=== PATIENT | male | born 1940 | race Caucasian/White ===

== ENCOUNTER → 2017-05-31 | Day surgery (SDC) | payer MEDICARE, OTHER ==
[~2017-05-31] VITALS: Ht 182.9 cm; Wt 100.0 kg
[~2017-05-31] MED LIST: ASPI-516 CHEW; BACITRACIN TOP OINT 15 GM TUBE ONE; BUPIVACAINE HCL PF 0.25% 30 ML VIAL ONE; BUPIVACAINE/EPINEPHRINE 0.25% 50 ML VIAL ONE; CHLORHEXIDINE GLUCONATE 2 % 1 PACK (2 CLOTHS) TOPICAL PRN; DEXAMETHASONE SOD PHOS 4 MG/ML VIAL IV ONE; IBUP1TAB7 PO; LACTATED RINGER'S 1000 ML IV PRN; LIDOCAINE 1%/EPINEPHrine 1:100,000 SOLN 30 ML VIAL ONE; LIDOCAINE HCL 1% PF 5 ML SYRINGE OTHER ONE; METOPROLOL TARTRATE 25 MG TAB PO PRN; MIDAZOLAM HCL 2 MG/2 ML VIAL ONE; MORPHINE SULFATE 2 MG/ML INJ ONE; NEOMYCIN/POLYMYXIN 1 ML G.U. IRRIGANT ONE; ONDANSETRON HCL 4 MG/2 ML VIAL IV PUSH ONE; POVIDONE IODINE 5% (ANTISEPSIS KIT) 4 APPLICATIONS EACH NARE PRN; PREV15CA20 PO; PROPOFOL 200 MG/20 ML AMP IV ONE; SODIUM CHLORID 0.9% 500 ML IV PRN; TAMS5CAP PO; ceFAZolin 2 GM PREMIX 50 ML IV SCH; ceFAZolin 2 GM PREMIX 50 ML ONE; ePHEDrine/NS 25 MG/5 ML SYRINGE IV ONE
[2017-05-31 10:00] VITALS: PULSE 85
[2017-05-31 11:30] VITALS: BP 127/71; PULSE 71; RESP 16; TEMP 97.4; O2SAT 99
--- NOTE | 2017-05-31 15:21 | EKG ---
Date Performed: 05/31/2017 Time Performed: 08:22:47 PTAGE: 76 years EKG: Sinus rhythm MINIMAL ST DEPRESSION BORDERLINE ECG NO PREVIOUS TRACING DOCTOR: Daniele Cassidy Interpretating Date/Time 05/31/2017 15:19:48
--- NOTE | 2017-05-31 16:40 | PD.OP ---
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 Surgeon: Alec Cruz Turntable Engineer(s): . 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 Risk benefits and alternative treatments were discussed with patient. All questions answered. Patient expressed understanding. Patient elected to assume the risks of wide local excision of above 2 lesions. Informed consent obtained. The surgical sites were marked in the preoperative holding bay. Antibiotics were given on-call to the operating room. The patient was taken to the operating room. All pressure points were padded. After the smooth induction of general anesthesia, a surgical timeout was performed, and the lesions and margins were marked. Following this, the surgical sites were instilled with quarter percent Marcaine with epinephrine. The surgical sites were prepped and draped in usual sterile fashion. Attention was first turned to the left anterior shoulder lesion. This was excised with 5 mm margin circumferentially. After undermining of several centimeters in both directions, the central aspect of the wound was closed with 3-0 Monocryl interrupted. Following this standing cone deformities were excised. The remainder of the incision was closed with deep dermal 3-0 Monocryl's, followed by running 4-0 Monocryl subcuticular. The wound was cleaned, dried, and dressed with Steri-Strips dry gauze and Tegaderm. Attention was now turned to the left ear lesion. This was excised leaving adequate perichondrium over the underlying cartilage. Superolaterally, under the central portion of the lesion , some cartilage was taken (roughly 4 mm) because this was adherent to the overlying skin following the biopsy. This was not felt to result in significant cosmetic sequelae as this area would likely be excised during the reconstruction. Furthermore because it was adherent, it was thought to be more oncologically prudent to include it with the specimen. The specimen was marked for orientation and sent for permanent pathology. Following this hemostasis was ensured. The wound was dressed with copious bacitracin Xeroform dry gauze fluffs Gemma wrap and a craniotomy stockinette. All needle sponge and instrument counts were correct 2. The patient was awoken from anesthesia and arrived stable and doing well to the PACU. Alec Cruz MD May 31, 2017 16:40
== END | disposition home or self-care (01) ==
LOC: PHSDC 07:50
PROVIDERS: ATTEND Student in an Organized Health Care Education/Training Program
DX: D03.62 Melanoma in situ of left upper limb, including shoulder (principal); D03.22 Melanoma in situ of left ear and external auricular canal; Z01.810 Encounter for preprocedural cardiovascular examination
CPT/HCPCS: 00300; 11603; 11644; 13121; 88305; 93005; J0690; J1100; J2250; J2270; J2405; J3010; J7120

== ENCOUNTER → 2017-06-12 | Day surgery (SDC) | payer MEDICARE, OTHER ==
[~2017-06-12] VITALS: Ht 182.9 cm; Wt 99.5 kg
[~2017-06-12] MED LIST changes: +ACETAMINOPHEN 1000 MG/100 ML 100 ML IV ONE; +ACETAMINOPHEN/HYDROcodone 325 MG/5 MG TAB PO PRN; +ARTIFICIAL TEARS OPTH OINT 3.5 APPLIC/3.5 GM TUBO ONE; -BUPIVACAINE HCL PF 0.25% 30 ML VIAL ONE; +DO NOT ADM ANY ANTICOAGULANT DRUGS PRN; +GLYCOPYRROLATE 1 MG/5 ML SYRINGE IV PUSH ONE; +LACTATED RINGER'S 1000 ML INJ 1,000 ML IV ONE; -LIDOCAINE 1%/EPINEPHrine 1:100,000 SOLN 30 ML VIAL ONE; -MORPHINE SULFATE 2 MG/ML INJ ONE; -NEOMYCIN/POLYMYXIN 1 ML G.U. IRRIGANT ONE; +NEOSTIGMINE 5 MG/5 ML SYRINGE IV PUSH ONE; -ONDANSETRON HCL 4 MG/2 ML VIAL IV PUSH ONE; +ROCURONIUM INJ 50 MG/5 ML SYRINGE IV PUSH ONE; +[UNRECOGNIZED DRUG - OTHER] TOPICAL ONE; +ceFAZolin 1,000 MG/NS 100 ML IV SCH; -ceFAZolin 2 GM PREMIX 50 ML IV SCH; -ceFAZolin 2 GM PREMIX 50 ML ONE
[2017-06-12 07:47] LABS: AUTOMATED NEUTROPHIL # 3.9 TH/MM3 (1.8-7.7); BASOPHIL % 0.4 % (0.0-2.0); EOSINOPHIL # 0.2 TH/MM3 (0-0.4); EOSINOPHIL % 3.9 % (0.0-4.0); HEMATOCRIT 40.3 % (39.0-51.0); HEMOGLOBIN 13.9 GM/DL (13.0-17.0); LYMPH % 24.8 % (9.0-44.0); LYMPHOCYTE # 1.5 TH/MM3 (1.0-4.8); MEAN CELL VOLUME 98.3 FL (80.0-100.0); MEAN CORPUSCULAR HEMOGLOBIN 33.8 PG (27.0-34.0); MEAN CORPUSCULAR HGB CONC 34.4 % (32.0-36.0); MEAN PLATELET VOLUME 9.1 FL (7.0-11.0); MONO % 8.9 % (0.0-8.0); MONOCYTE # 0.6 TH/MM3 (0-0.9); PLATELET COUNT 177 TH/MM3 (150-450); RED CELL DISTRIBUTION WIDTH 13.7 % (11.6-17.2); WHITE BLOOD COUNT 6.2 TH/MM3 (4.0-11.0)
[2017-06-12 11:52] VITALS: BP 138/70; PULSE 78; RESP 18; TEMP 97.1; O2SAT 96
--- NOTE | 2017-06-13 17:25 | PD.OP ---
Operative Report Date of Surgery: Jun 12, 2017 Preoperative Diagnosis: (1) Ear wound (2) Melanoma of ear Postoperative Diagnosis: (1) Ear wound Procedure: Adjacent tissue rearrangement of left ear (86196) Surgeon: Alec Cruz [employer] Power Plant Engineer(s): . Operation and Findings: Patient is a 76-year-old male who presented to clinic with the left auricular melanoma in situ. The patient was status post wide local excision. Risks benefits and alternative treatments for closure of the left superior auricular wound were discussed. All questions were answered. Patient expressed understanding. The patient elected to assume the risks of adjacent tissue rearrangement for closure of the wound. Informed consent was obtained. The surgical site was marked in the preoperative holding bay. Antibiotics were given on-call to the operating room. The patient was taken to the operating room. All pressure points were padded. A surgical timeout was performed. After the smooth induction of general anesthesia, the surgical site was instilled with quarter percent Marcaine plain. Surgical site was prepped and draped in the usual sterile fashion. The patient's superior helical rim was seen to have a roughly 2.5 cm defect, full-thickness. Double opposing chondral cutaneous advancement flaps were planned. Attention was first turned to the inferior aspect of the wound. Incisions were made along the anterior aspect of the helical rim including anterior skin and cartilage. This incision line was carried onto the lobule. With retraction upward, the advancement was felt to be insufficient for adequate closure. As such the posterior skin was mobilized off of the posterior aspect of the auricular cartilage, effectively degloving of the posterior auricle superior to the lobule. This gave excellent advancement and closed over half of the wound. Following this attention was then turned to the remaining superior helix, anterior to the wound. An incision was made along the inferior aspect of the helical rim, through anterior skin and cartilage. This incision was carried onto the root of the helix. After freeing necessary attachments, the superior flap came close to approximation with the superior aspect of the inferior flap. Several millimeters of superior scapha and superior jevon were excised. This gave excellent apposition of the 2 flaps. Hemostasis was ensured. The cartilage was reapproximated with interrupted 5-0 Prolene. The skin was reapproximated with interrupted 4-O chromics and nylons in an interrupted fashion. The ear was coated with copious Sulfamylon. This was followed by Xeroform gauze, dry gauze, ABD pad and craniotomy stockinette. The surgical site was cleaned. The patient was awoken from an anesthesia and arrived stable and doing well to the PACU. All needle sponge and instrument counts were correct 2. Alec Cruz MD Jun 13, 2017 17:25
== END | disposition home or self-care (01) ==
LOC: HSDC 06:24
PROVIDERS: ATTEND Student in an Organized Health Care Education/Training Program
DX: S01.302A Unspecified open wound of left ear, initial encounter (principal); C43.22 Malignant melanoma of left ear and external auricular canal
CPT/HCPCS: 00300; 14061; 85025; J0131; J0690; J1100; J2250; J2710; J3010; J7120